=== PATIENT | male | born 1995 | race Caucasian/White ===

== ENCOUNTER 2024-12-13 09:18 | Inpatient (IN) | payer OTHER ==
[~2024-12-13] VITALS: Ht 160 cm; Wt 59.9 kg
[2024-12-13 09:58] LABS: BASOPHILS % 0.3 % (0.0-2.0); EOSINOPHILS % 0.3 % (0.0-5.0); HEMATOCRIT. 43.8 % (42.0-52.0); HEMOGLOBIN. 14.2 g/dL (14.0-18.0); LYMPHOCYTES % 15.3 % (20.0-50.0); MEAN CORPUSCULAR HEMOGLOBIN 32.5 pg (28.0-32.0); MEAN CORPUSCULAR HGB CONC 32.5 g/dL (31.0-37.0); MEAN PLATELET VOLUME 8.1 fl (7.4-10.4); MONOCYTES % 4.3 % (2.0-8.0); NEUTROPHILS % 79.8 % (40.0-76.0); PLATELET 227 x1000/uL (130-400); RED BLOOD CELL COUNT 4.38 mill/uL (4.7-6.1); WHITE BLOOD COUNT 5.4 x1000/uL (4.5-11.0)
[2024-12-13 10:02] LABS: CHLORIDE 103 mEq/L (98-107); POTASSIUM 3.8 mEq/L (3.5-5.1); SODIUM 140 mEq/L (136-145)
[2024-12-13 10:04] LABS: CALCIUM 9.1 mg/dL (8.7-10.4); CARBON DIOXIDE 23 mEq/L (21-32)
[2024-12-13 10:09] LABS: CREATININE 0.7 mg/dL (0.6-1.3); ETHANOL BLOOD < 10 mg/dL (<10); GLUCOSE 164 mg/dL (70-105); UREA NITROGEN BLOOD < 5 mg/dL (9-23)
[2024-12-13 10:11] LABS: ALANINE AMINOTRANSFERASE 151 IU/L (10-49); ALBUMIN 4.5 g/dL (3.2-4.8); ASPARTATE AMINOTRANSFERASE 178 IU/L (<34); BILIRUBIN DIRECT 0.2 mg/dL (<=3.0); BILIRUBIN TOTAL 1.1 mg/dL (0.1-1.0); PROTEIN TOTAL 7.3 g/dL (6.0-8.3); PROTHROMBIN TIME 10.6 sec (9.6-11.0)
[2024-12-13] MEDS: SODIUM CHLORIDE 0.9% 500 ML IV ONE (10:18)
[2024-12-13] MEDS: DIAZEPAM 5 MG/ML 2ML SYR IV ONE (10:19)
[2024-12-13 13:30] VITALS: BP 135/85; PULSE 96; RESP 20; TEMP 36.1; O2SAT 96
[2024-12-13] MEDS ORDERED: NALOXONE HCL 0.4MG/ML VIAL IV PRN (14:30)
[2024-12-13] MEDS: KETOROLAC 30MG/ML VIAL IV PRN (15:05)
[2024-12-13] MEDS: ONDANSETRON HCL 4MG/2ML INJ IV PRN (15:32)
[2024-12-13 16:00] VITALS: BP 129/75; PULSE 92; RESP 18; TEMP 37.6; O2SAT 98
[2024-12-13 17:47] LABS: CLARITY URINE CLEAR (CLEAR); COLOR URINE ORANGE (YELLOW); GLUCOSE URINE NEGATIVE (NEGATIVE); KETONES URINE 3+ (NEGATIVE); LEUKOCYTE ESTERASE URINE NEGATIVE (NEGATIVE); NITRITE URINE NEGATIVE (NEGATIVE); OCCULT BLOOD URINE NEGATIVE (NEGATIVE); PROTEIN URINE TRACE (NEGATIVE); SPECIFIC GRAVITY URINE 1.018 (1.005-1.030)
[2024-12-13 17:58] LABS: BACTERIA URINE FEW; RBC URINE NONE SEEN /hpf (0-2); SQUAMOUS EPITHELIAL CELL URINE NONE SEEN /lpf (RARE/1+); WBC URINE 0-2 /hpf (0-2); YEAST URINE NONE SEEN
[2024-12-13 18:01] LABS: *AMPHETAMINES SCREEN URINE NEGATIVE (NEGATIVE); *BENZODIAZEPINES SCREEN URINE PRESUMPTIVE POSITIVE (NEGATIVE)
[2024-12-13 18:02] LABS: *BARBITURATES SCREEN URINE NEGATIVE (NEGATIVE); *COCAINE SCREEN URINE NEGATIVE (NEGATIVE); CANNABINOID URINE SCREEN NEGATIVE (NEGATIVE); ECSTASY MDMA SCREEN URINE NEGATIVE (NEGATIVE); METHADONE URINE SCREEN NEGATIVE (NEGATIVE); OPIATES URINE SCREEN NEGATIVE (NEGATIVE); PHENCYCLIDINE URINE SCREEN NEGATIVE (NEGATIVE)
[2024-12-13 20:00] VITALS: BP 125/85; PULSE 82; RESP 18; TEMP 36.3; O2SAT 99
[2024-12-13] MEDS: LORAZEPAM 1MG TABLET PO PRN (21:32)
[2024-12-14] VITALS: BP 128/76; PULSE 88; RESP 16; TEMP 36.1; O2SAT 99
[2024-12-14 04:00] VITALS: BP 100/55; PULSE 82; RESP 18; TEMP 36.8
[2024-12-14 08:00] VITALS: BP 92/62; PULSE 84; RESP 20; TEMP 36.7; O2SAT 100
[2024-12-14] MEDS: HYDROCODONE/ACETAMINOPHEN 5/325MG TABLET PO PRN (10:52)
[2024-12-14 12:00] VITALS: BP 127/65; PULSE 86; RESP 20; TEMP 36.6; O2SAT 100
[2024-12-14 13:01] VITALS: BP 127/65; PULSE 86; TEMP 97.9; O2SAT 100
== END 2024-12-14 13:26 | disposition home or self-care (01) | DRG 115 ==
LOC: ER 09:18 → 5WST 11:27 → EDBEDREQ 11:32 → EDBEDREQTM 11:32 → 7EST 22:33
PROVIDERS: ADMIT Internal Medicine; ATTEND Internal Medicine
DX: S02.2XXA Fracture of nasal bones, initial encounter for closed fracture (principal); F10.139 Alcohol abuse with withdrawal, unspecified; J34.2 Deviated nasal septum; W18.39XA Other fall on same level, initial encounter; Y90.9 Presence of alcohol in blood, level not specified; Z87.891 Personal history of nicotine dependence; Y93.89 Activity, other specified; Y92.89 Other specified places as the place of occurrence of the external cause; Y99.8 Other external cause status
CPT/HCPCS: 36415; 70486; 80048; 80076; 80305; 80320; 81003; 83036; 85025; 86850; 86900; 93005; 99291; A4606; J1885; J2405; J7040; G0480

== ENCOUNTER 2025-03-26 14:39 | Emergency (ER) | payer OTHER ==
[~2025-03-26] VITALS: Ht 170.2 cm; Wt 55.0 kg
[2025-03-26 14:49] VITALS: O2SAT 100
[2025-03-26] MEDS: CHLORDIAZEPOXIDE 25MG CAPSULE PO ONE (15:15)
[2025-03-26 15:47] LABS: BG DEOXYHEMOGLOBIN 11.0 % (0.0-5.0)
[2025-03-26] MEDS: SODIUM CHLORIDE 0.9% 1,000 ML IV ONE (16:10)
[2025-03-26 16:21] LABS: BASOPHILS % 0.5 % (0.0-2.0); EOSINOPHILS % 0.4 % (0.0-5.0); HEMATOCRIT. 45.2 % (42.0-52.0); HEMOGLOBIN. 15.4 g/dL (14.0-18.0); LYMPHOCYTES % 27.9 % (20.0-50.0); MEAN PLATELET VOLUME 7.9 fl (7.4-10.4); MONOCYTES % 8.0 % (2.0-8.0); NEUTROPHILS % 63.2 % (40.0-76.0); PLATELET 334 x1000/uL (130-400); RED BLOOD CELL COUNT 4.59 mill/uL (4.7-6.1); RED CELL DISTRIBUTION WIDTH 16.4 % (11.6-14.6)
[2025-03-26 16:43] LABS: CREATININE 0.7 mg/dL (0.6-1.3)
[2025-03-26 16:44] LABS: ETHANOL BLOOD 300 mg/dL (<10); UREA NITROGEN BLOOD 6 mg/dL (9-23)
[2025-03-26 16:45] LABS: ASPARTATE AMINOTRANSFERASE 73 IU/L (<34); BILIRUBIN DIRECT 0.1 mg/dL (<=3.0)
[2025-03-26 16:46] LABS: BILIRUBIN TOTAL 0.4 mg/dL (0.1-1.0); INR 1.0; PROTEIN TOTAL 7.5 g/dL (6.0-8.3)
[2025-03-26] MEDS ORDERED: CHLO25CA10 MT (17:17)
[2025-03-26 19:13] VITALS: BP 110/82; PULSE 99; RESP 16; TEMP 36.9; O2SAT 100
== END 2025-03-26 19:16 | disposition home or self-care (01) ==
LOC: ER 14:39
DX: F10.939 Alcohol use, unspecified with withdrawal, unspecified (principal); I49.9 Cardiac arrhythmia, unspecified; Y90.9 Presence of alcohol in blood, level not specified
CPT/HCPCS: 80076; 80048; 80320; 83690; 83735; 85025; 85610; 36415; 82375; 82803; 93005; 96361; 96374; 99284; J2060; J7030; Z7610 ×2; A4606; G0480

== ENCOUNTER 2025-04-21 10:56 | Emergency (ER) | payer OTHER ==
[~2025-04-21] VITALS: Ht 172.7 cm; Wt 60.0 kg
[~2025-04-21 10:56] MED LIST: CHLO25CA10 MT
[2025-04-21 11:03] VITALS: BP 120/80; TEMP 36.8; O2SAT 99
[2025-04-21 11:07] VITALS: PULSE 103; RESP 20; O2SAT 99
[2025-04-21 12:42] LABS: BASOPHILS % 2.2 % (0.0-2.0); EOSINOPHILS % 2.1 % (0.0-5.0); HEMATOCRIT. 44.0 % (42.0-52.0); HEMOGLOBIN. 15.2 g/dL (14.0-18.0); LYMPHOCYTES % 40.4 % (20.0-50.0); MEAN PLATELET VOLUME 7.8 fl (7.4-10.4); MONOCYTES % 8.1 % (2.0-8.0); NEUTROPHILS % 47.2 % (40.0-76.0); PLATELET 268 x1000/uL (130-400); RED BLOOD CELL COUNT 4.39 mill/uL (4.7-6.1); RED CELL DISTRIBUTION WIDTH 15.6 % (11.6-14.6)
[2025-04-21 12:54] LABS: CREATININE 0.6 mg/dL (0.6-1.3)
[2025-04-21 12:55] LABS: ETHANOL BLOOD 300 mg/dL (<10); UREA NITROGEN BLOOD 5 mg/dL (9-23)
[2025-04-21 12:56] LABS: ASPARTATE AMINOTRANSFERASE 167 IU/L (<34)
[2025-04-21 12:57] LABS: BILIRUBIN DIRECT 0.2 mg/dL (<=3.0); BILIRUBIN TOTAL 0.6 mg/dL (0.1-1.0); PROTEIN TOTAL 7.3 g/dL (6.0-8.3)
[2025-04-21] MEDS: ACETAMINOPHEN 325MG TABLET PO ONE (13:38)
[2025-04-21] MEDS: FOLIC ACID 1 MG, THIAMINE HCL 100 MG, MVI, ADULT NO.1 10 ML in DEXTROSE 5% WATER 1,000 ML IV ONE (13:38)
== END 2025-04-21 13:38 | disposition left against medical advice (07) ==
LOC: ER 10:56 → CANBEDREQ 14:44
DX: S09.8XXA Other specified injuries of head, initial encounter (principal); F10.129 Alcohol abuse with intoxication, unspecified; X58.XXXA Exposure to other specified factors, initial encounter; Y93.89 Activity, other specified; Y92.89 Other specified places as the place of occurrence of the external cause; Y99.8 Other external cause status; Y90.8 Blood alcohol level of 240 mg/100 ml or more
CPT/HCPCS: 80076; 80048; 80320; 83690; 85025; 36415; 71045; 70450; 99284; J3490 ×2; J3411; J7070; Z7610 ×2; G0480

== ENCOUNTER 2025-04-30 16:08 | Emergency (ER) | payer OTHER ==
[~2025-04-30] VITALS: Ht 165.1 cm; Wt 72.0 kg
[2025-04-30 16:15] VITALS: BP 117/78; PULSE 109; RESP 14; TEMP 36.6; O2SAT 96
== END 2025-04-30 19:08 | disposition left against medical advice (07) ==
LOC: ER 16:08
DX: M79.10 Myalgia, unspecified site (principal); Z53.21 Procedure and treatment not carried out due to patient leaving prior to being seen by health care provider